=== PATIENT | male | born 1995 | race Caucasian/White ===

== ENCOUNTER 2022-06-30 02:34 | Emergency (ER) | payer OTHER, SELFPAY ==
[2022-06-30 02:39] VITALS: BP 123/72; PULSE 107; RESP 18; TEMP 36.7; O2SAT 97
[2022-06-30 03:16] LABS: Strep Group A RT-PCR DETECTED (Negative)
--- NOTE | 2022-06-30 04:37 | ED.GENADULT ---
HPI - General Adult General Chief complaint: Upper Respiratory Infection Stated complaint: sore throat History of Present Illness HPI narrative: This is a 26-year-old male presenting to ED with 2 days of sore throat. Patient denies fever, chills. He does have an occasional cough. Patient has pain with swallowing but is able to tolerate his own secretions. No voice changes. Patient says he has had 2 episodes of nausea and vomiting. He has been treating himself with Benadryl and [place]. It is not relieved his pain but it has made him sleepy. Related Data Allergies Allergy/AdvReac Type Severity Reaction Status Date / Time No Known Allergies Allergy Verified 06/30/22 04:44 Exam Narrative: APPEARANCE: No apparent distress. Patient is well-appearing Head: erythematous throat, no exudates no evidence of peritonsillar abscess, no uvular deviation EYES: EOMI, NOSE: Atraumatic NECK: Trachea midline RESPIRATORY: No increased rate of breathing, clear to auscultation CARDIOVASCULAR: RRR, ABDOMINAL: Non-distended MUSCULOSKELETAl: No obvious deformities NEURO: Alert. Moving 4/4 extremities SKIN:: Warm, dry. Normal color PSYCHIATRIC: Normal affect Course Vital Signs Vital signs: Vital Signs Temperature 98.1 F 06/30/22 02:39 Pulse Rate 107 H 06/30/22 02:39 Respiratory Rate 18 06/30/22 02:39 Blood Pressure 123/72 06/30/22 02:39 Pulse Oximetry 97 06/30/22 02:39 Oxygen Delivery Room Air 06/30/22 02:39 Temperature 98.1 F 06/30/22 02:39 Pulse Rate 107 H 06/30/22 02:39 Respiratory Rate 18 06/30/22 02:39 Blood Pressure 123/72 06/30/22 02:39 Pulse Oximetry 97 06/30/22 02:39 Oxygen Delivery Room Air 06/30/22 02:39 Medical Decision Making [facility] Narrative Medical decision making narrative: -Presentation: 26-year-old male presenting with sore throat -DDX includes but is not limited to: strep throat, viral pharyngitis, mononucleosis -Co-morbidities complicating care: none -Social determinants of health: 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 -Shared decision making / Disposition: patient was diagnosed with strep. No evidence of peritonsillar abscess. Controlling his own secretions. Well appearing. Patient be discharged with antibiotics and symptomatic control. -RX Amoxicillin, Motrin, Tylenol, Zofran Vital Signs Vital Signs: Vital Signs Temperature 98.1 F 06/30/22 02:39 Pulse Rate 107 H 06/30/22 02:39 Respiratory Rate 18 06/30/22 02:39 Blood Pressure 123/72 06/30/22 02:39 Pulse Oximetry 97 06/30/22 02:39 Oxygen Delivery Room Air 06/30/22 02:39 Temperature 98.1 F 06/30/22 02:39 Pulse Rate 107 H 06/30/22 02:39 Respiratory Rate 18 06/30/22 02:39 Blood Pressure 123/72 06/30/22 02:39 Pulse Oximetry 97 06/30/22 02:39 Oxygen Delivery Room Air 06/30/22 02:39 Lab Data Labs: Lab Results 06/30/22 Range/Units 02:44 Group A Strep (PCR) Detected A (Negative) Discharge Plan Discharge Clinical Impression: Strep pharyngitis Patient Disposition: Home, Self-Care Condition: Stable Instructions: Antibiotic Form, Pharyngitis (ED) Additional Instructions: You were seen emergency department for strep throat. Please take a 10 day course of amoxicillin. Please take Motrin and Tylenol for pain control. Please return emergency department if you develop shortness of breath, inability to swallow, or feel like your condition is getting worse. Prescriptions: New ibuprofen 800 mg tablet 800 mg PO TID PRN (Reason: pain) 7 Days Qty: 21 0RF acetaminop
[2022-06-30] MEDS: ACETAMINOPHEN 500 MG TABLET 1000 MG PO (04:52)
[2022-06-30] MEDS: AMOXICILLIN 500 MG CAPSULE PO (04:54)
[2022-06-30] MEDS: KETOROLAC 30 MG/ML VIAL (*BKC) 15 MG IM (04:54)
[2022-06-30] MEDS: metroNIDAZOLE 250 MG TABLET 2000 MG PO (07:48)
[2022-06-30] MEDS: cefTRIAXone 1 GM VIAL 0.5 GM IM (07:49)
[2022-06-30] MEDS: LIDOCAINE HCL 1% LOCAL INJ 10 ML VIAL (07:53)
[2022-06-30] MEDS: DOXYCYCLINE 100 MG/NS 100 ML 100 MG/100 ML BAG IVPB (08:08)
[2022-06-30 08:22] VITALS: BP 92/53; PULSE 73; RESP 16; O2SAT 97
[2022-06-30 08:45] LABS: HIV 1/2 Ab P24 Ag Result Negative (Negative)
[2022-06-30 09:18] VITALS: BP 105/65; PULSE 79; RESP 14; O2SAT 98
[2022-06-30 10:55] LABS: Rapid Plasma Reagin Non-Reactive (NonReactive)
== END 2022-06-30 09:19 | disposition home or self-care (01) ==
PROVIDERS: Emergency Provider Emergency Medicine; PCP Family Medicine
DX: J02.0 Streptococcal pharyngitis (principal); Z20.2 Contact with and (suspected) exposure to infections with a predominantly sexual mode of transmission; Z20.6 Contact with and (suspected) exposure to human immunodeficiency virus [HIV]
CPT/HCPCS: 36415; 86592; 86703; 87491; 87591; 87651; 87661; 96365; 96372; 99284; A9270; G0432; J0696; J1100; J1885